=== PATIENT | male | born 1945 | race Caucasian/White ===

== ENCOUNTER 2016-08-21 06:09 | Day surgery (SDC) | payer MEDICARE, OTHER ==
--- NOTE | ~2016-08-21 | EGD ---
EGD REPORT [facility] [address] [place] [address] NAME: CLINTON CALLAWAY : [birth year] STATUS : REG [facility]#: [id number] AGE: 71 ADM/REG DATE : 08/21/16 MR#: [id number] REPORT SERV DATE: 08/21/16 DICTATED BY: JADE JACOBS DATE: 08/21/16 REPORT STATUS : Draft TRANSCRIBED BY: [employer] DATE: 08/21/16 [facility] Patient Name: Clinton Callaway Date of : 1945 Attending MD: JADE JACOBS, Procedure Date No Time: 08/21/2016 Procedure: Colonoscopy Indications: Surveillance: History of piecemeal removal adenoma last colonoscopy (< 6 months) Referring MD: Dylan Dave MD Medicines: Monitored Anesthesia Care Complications: No immediate complications. Estimated blood loss: None. Procedure: Pre-Anesthesia Assessment: - ASA Grade Assessment: III - A patient with severe systemic disease. After I obtained informed consent, the scope was passed under direct vision. Throughout the procedure, the patient's blood pressure, pulse, and oxygen saturations were monitored continuously. The [id number] was introduced through the anus and advanced to the cecum, identified by appendiceal orifice and ileocecal valve. The colonoscopy was performed without difficulty. The patient tolerated the procedure well. The quality of the bowel preparation was adequate. Findings: The perianal and digital rectal examinations were normal. A sessile polyp was found in the distal transverse colon. The polyp was 2 mm in size. This was near the lateral edge of the polypectomy scar. The polyp was removed with a cold biopsy forceps. Resection and retrieval were complete. Verification of patient identification for the specimen was done. Estimated blood loss was minimal. A single medium-sized scar was found in the distal transverse colon. Biopsies were taken with a cold forceps for histology. Verification of patient identification for the specimen was done. Estimated blood loss was minimal. A tattoo was seen in the distal transverse colon. A patchy area of mildly erythematous mucosa was found in the transverse colon and in the ascending colon. Internal hemorrhoids were found during retroflexion and were Grade II (internal hemorrhoids that prolapse but reduce spontaneously). The exam was otherwise without abnormality on direct and retroflexion views. Impression: - One 2 mm polyp in the distal transverse colon. EGD REPORT [address] [place]. [address] NAME: CLINTON CALLAWAY : [birth year] STATUS [place] [facility] [place] [id number] AGE: 71 ADM/REG DATE : 08/21/16 MR#: [id number] REPORT SERV DATE: 08/21/16 DICTATED BY: JADE JACOBS DATE: 08/21/16 REPORT STATUS : Draft TRANSCRIBED BY: [employer] DATE: 08/21/16 Resected and retrieved. - Scar in the distal transverse colon. Biopsied. - A tattoo was seen in the distal transverse colon. - Erythematous mucosa in the transverse colon and in the ascending colon. - Internal hemorrhoids. - The examination was otherwise normal on direct and retroflexion views. Recommendation: - Patient has a contact number available for emergencies. The signs and symptoms of potential delayed complications were discussed with the patient. Return to normal activities tomorrow. Written discharge instructions were provided to the patient. - Return to previous diet. - Continue present medications. - Await pathology results. - Repeat colonoscopy for surveillance based on pathology results. Procedure Code(s): --- Professional --- 78025, Colonoscopy, flexible, proximal to splenic flexure; with biopsy, single or multiple Diagnosis Code(s): --- Professional --- D12.3, Benign neoplasm of transverse colon K63.89, Other specified diseases of intestine K64.1, Second degree hemorrhoids K63.9, Disease of intestine, unspecified Z86.010, Personal history of colonic polyps CPT copyright 2013 [employer]. All rights reserved. The codes documented in this report are preliminary and upon natural gas trader review may be revised to meet current compliance requirements. JADE JACOBS, 08/21/2016 8:10 AM Number of Addenda: 0 Note Initiated On: 08/21/2016 7:30 AM Scope Withdrawal Time 0 hours 22 minutes 18 seconds [address] [id number]
[~2016-08-21 06:09] MED LIST: ADVIL PO; AMARYL1 MG PO; APRES50 PO; ASAB PO; CO Q-10200 MG PO; COQ-10200 MG OR; COZAAR100 MG PO; FISH-EPA1000 MG PO; FLAG500TAB PO; GLUCOPHAGE1000 MG PO; IBU400 PO; IMDUR30 PO; ISOSORBIDE MONONITRA PO; LEVAQUIN750 MG PO; LIPITOR20 PO; LIPITOR40 PO; LOP25 PO; MAGNESIUM 200 MG PO; MAGNESIUM PO; NORV10 PO; NORV5 PO; PAX10 PO; PAXIL30 MG PO; PRIN20 PO; TOPXL25 PO
== END 2016-08-21 23:59 | disposition home or self-care (01) ==
LOC: DMU 06:09
PROVIDERS: Internal Medicine Gastroenterology
PROC: 0DBL8ZX Excision of Transverse Colon, Via Natural or Artificial Opening Endoscopic, Diagnostic (ICD-10-PCS; principal; 2016-08-21 07:30)
DX: K64.1 Second degree hemorrhoids (principal); K63.89 Other specified diseases of intestine; I10 Essential (primary) hypertension; G47.33 Obstructive sleep apnea (adult) (pediatric); E11.9 Type 2 diabetes mellitus without complications; F41.9 Anxiety disorder, unspecified; F32.9 Major depressive disorder, single episode, unspecified; Z88.8 Allergy status to other drugs, medicaments and biological substances; E78.00 Pure hypercholesterolemia, unspecified; Z86.010 Personal history of colon polyps; Z87.442 Personal history of urinary calculi; Z88.2 Allergy status to sulfonamides; M19.90 Unspecified osteoarthritis, unspecified site; Z79.82 Long term (current) use of aspirin; Z79.899 Other long term (current) drug therapy; Z98.41 Cataract extraction status, right eye; Z98.42 Cataract extraction status, left eye; Z99.89 Dependence on other enabling machines and devices; Z90.49 Acquired absence of other specified parts of digestive tract; Z98.890 Other specified postprocedural states
CPT/HCPCS: 82962; 88305